=== PATIENT | male | born 1955 | race Caucasian/White ===

== ENCOUNTER 2017-05-25 09:32 | Outpatient (CLI) | payer MEDICAID ==
[~2017-05-25 09:32] MED LIST: ASPI-611 PO; ATOR10TA PO; CYCL-1 PO; ERGO500014 PO; POTA10TA19 PO
== END 2017-05-25 23:59 | disposition home or self-care (01) ==
LOC: RAD 09:32
PROVIDERS: ATTEND Specialist
DX: R56.9 Unspecified convulsions (principal)
CPT/HCPCS: 95816